=== PATIENT | female | born 1975 | race Caucasian/White ===

== ENCOUNTER 2018-08-15 15:02 | Emergency (ER) | payer SELFPAY ==
[2018-08-15 15:04] VITALS: BP 137/89; PULSE 86; RESP 18; TEMP 36.7; O2SAT 96; BMI 24.1
[2018-08-15 15:15] VITALS: TEMP 36.7
--- NOTE | 2018-08-15 15:16 | ED.VISSUMM ---
- ER Visit Summary Date of Service: 08/15/18 Chief Complaint: [Cough and fever] History of Present Illness: The patient is a 43 F [resents to the emergency department with multiple complaints that started 5 days ago. Patient states that she started with a cough and subjective fever. Patient complains of a mild sore throat from coughing. Patient complains of body aches. Patient had some posttussive emesis. Patient states her cough at times is productive with some green sputum. Patient is a smoker. Patient states that she has been around a young child that her daughter babysits who had upper respiratory infection recently. Patient denies any diarrhea.] Physical Examination: [HEENT-PERRLA, EOMI. Cranial nerves II through XII grossly intact. TMs clear. Mucous membranes moist. No adenopathy. Pharynx not erythematous. No anterior cervical lymphadenopathy noted. Cardiovascular-regular rate and rhythm without murmur or ectopy Lungs-good aeration bilaterally. Faint expiratory wheezes noted occasionally. No accessory muscle use or retractions. Abdomen-normoactive bowel sounds, soft, nontender, no rebound or rigidity, no peritoneal signs. Extremities-intact ?4, normal range of motion, normal pulses, atraumatic] Test Results: [Chest x-ray obtained showed a lingular infiltrate. Influenza screen was negative.] Emergency Department Course and Treatment: [Patient was started on Zithromax.] Treatment Plan: [Patient will be given an albuterol MDI as well as Tessalon Perles and a prescription for Zithromax. Patient will be referred to primary care physician bpm solution architect for no doc for follow-up within the next 5-7 days. Given patient's unremarkable vital signs I feel it is safe to treat her as an outpatient. Patient advised to return if increased difficulty breathing or condition should worsen anyway.] Disposition: Discharged home in stable condition [] Impression: [Pneumonia] This note was generated with [employer] dictation software. It may contain incorrect words, spelling, and punctuation that were not noted in review of the chart prior to signing ED Disposition - Plan for ED Patient: Chief Complaint: General Illness Referrals: Care Physician,No Primary [Primary Care Provider] -
--- NOTE | 2018-08-15 15:20 | RAD_ITS ---
STUDY: X-RAY CHEST REASON FOR EXAM: Female, 43 years old. Cough. Chest congestion and fever. TECHNIQUE: PA and lateral views of the chest. COMPARISON: None. FINDINGS: Focal lingular infiltrate. There is no demonstrated pleural abnormality. Normal size heart. Normal mediastinum and queta. Normal visualized pulmonary arteries. Normal visualized aortic arch and descending thoracic aorta. Normal visualized thoracic spine. Normal visualized ribs, clavicles, and shoulders. There is no demonstrated abnormality of the visualized soft tissue structures of the upper abdomen. RAD/Chest PA and Lateral IMPRESSION: Focal lingular infiltrate. Electronically Signed: Chet Rodriguez MD at 15:41 EST Tel [phone], Service support ,
--- NOTE | 2018-08-15 16:38 | ED.DEP ---
ED Disposition - Plan for ED Patient: Chief Complaint: General Illness Instructions: ED Pneumonia Adult Prescriptions: Azithromycin [Zithromax] 250 mg PO DAILY #4 tab Benzonatate [Tessalon Perle] 200 mg PO TID PRN PRN #20 cap PRN Reason: Cough Referrals: Care Physician,No Primary [Primary Care Provider] - Toño Ruiz MD [STAFF PHYSICIAN] - 5-7 Days
[2018-08-15] MEDS: Azithromycin 250 MG Tablet 500 MG PO (16:51)
== END 2018-08-15 16:55 | disposition home or self-care (01) ==
PROVIDERS: Emergency Provider Emergency Medicine
DX: J18.9 Pneumonia, unspecified organism (principal); F17.200 Nicotine dependence, unspecified, uncomplicated
CPT/HCPCS: 71046; 87804; 99283

== ENCOUNTER 2019-07-06 21:32 | Emergency (ER) | payer SELFPAY ==
[2019-07-06 21:32] VITALS: BP 158/98; PULSE 103; RESP 16; TEMP 36.6; O2SAT 98; BMI 26.2
[2019-07-06 22:04] VITALS: O2SAT 98
--- NOTE | 2019-07-06 23:01 | ED.VIS.GEN ---
History of Present Illness Chief Complaint: Cold Sx Informant: Patient Narrative: Presents with upper respiratory symptoms for the last 2 weeks. She is had a runny stuffy nose cough with occasional mucus sore throat and laryngitis. She is tried debk-jpr-uwoagil medications with minimal relief. She does smoke cigarettes. Wants to make sure she does not have pneumonia. No fevers or chills. Current severity is mild to moderate. Past Medical History - Allergies and Home Meds Allergies/Adverse Reactions: Allergies No Known Allergies Allergy (Verified 07/06/19 21:34) Primary Care Physician: Care Physician,No Primary [Primary Care Provider] - Prior records reviewed: Yes Past Medical History: None Surgical History: - - Reviewed Lives: With Family Smoking Status: Current every day smoker Alcohol: None Drugs: None Review of Systems General: Denies: Chills, Fever, Sweats Eyes: Denies: Visual changes - bilaterally, Diplopia ENT: Reports: Bilateral ear pain, Rhinorrhea, Sore throat Cardiovascular: Denies: Chest pain, Palpitations Respiratory: Reports: Cough. Denies: Dyspnea, Dyspnea on exertion Gastrointestinal: Denies: Abdominal pain, Nausea, Vomiting, Diarrhea, Melena, Hematochezia Genitourinary: Denies: Dysuria, Hematuria, Frequency Musculoskeletal: Denies: Back pain, Extremity Pain Skin: Denies: Rash, Wounds Neurological: Denies: Headache, Weakness, Numbness Physical Exam Vital Signs/Narrative: Vital Signs Temp Pulse Resp BP Pulse Ox 07/06/19 21:32 97.8 F 103 H 16 158/98 H 98 General: Well nourished, Well developed, No Acute Distress Head: Normocephalic, Atraumatic Eyes: Perrl, EOMI ENT: Moist mucous membranes, No rhinorrhea, TM's clear, Nasal congestion. Negative for: Dry mucous membranes, Sinus tenderness Neck: Supple, Nontender Cardiovascular: Regular rate, Regular rhythm, No murmurs Respiratory: No distress, CTA bilaterally, Chest nontender Abdomen: Soft, Nontender, Nondistended, Normal bowel sounds Back: Nontender, Normal Inspection Extremities: Nontender, No edema Skin: Normal color, No rash Neurological: Alert, Oriented x3, Cranial nerves II-XII grossly intact, Normal Strength, Normal Sensation Psychological: Normal affect, Normal Mood Diagnostic/Tx/Re-eval - Medical Decision Making Chest x-ray obtained is negative for acute process. At this time I feel the patient has an upper respiratory infection with laryngitis that is viral in nature and will have to run its course. ED Disposition - Plan for ED Patient: Disposition: Psychiatric Hospital or Unit Diagnosis: Upper respiratory infection Instructions: Adult Self-Care for Colds and Flu Referrals: Care Physician,No Primary [Primary Care Provider] -
--- NOTE | 2019-07-06 23:02 | RAD_ITS ---
HISTORY: Cough EXAMINATION/TECHNIQUE: XR Chest 2 Views: COMPARISON: 08/15/2018 FINDINGS: Normal heart size and normal lung volumes. No vascular congestion, pleural effusion, or acute pulmonary infiltration. No pneumothorax. The bony thorax appears intact. RAD/Chest PA and Lateral IMPRESSION: No acute cardiopulmonary disease. at 2338 Reported and signed by: Ambrosio Shaw MD Electronically Signed: Ambrosio Shaw, at 23:37 EST Tel , Service support ,
[2019-07-06 23:53] VITALS: BP 149/96; PULSE 91; RESP 20; O2SAT 96
== END 2019-07-06 23:54 | disposition home or self-care (01) ==
PROVIDERS: Emergency Provider Emergency Medicine
DX: J06.9 Acute upper respiratory infection, unspecified (principal); F17.210 Nicotine dependence, cigarettes, uncomplicated
CPT/HCPCS: 71046; 99282

== ENCOUNTER 2019-09-13 09:30 | Emergency (ER) | payer SELFPAY ==
[2019-09-13 09:31] VITALS: BP 157/111; PULSE 126; RESP 17; TEMP 36.8; O2SAT 98; BMI 26.2
--- NOTE | 2019-09-13 09:44 | ED.VIS.BACK ---
History of Present Illness Informant: Patient Onset: Days - 3 days Context: Sudden Onset Chronic pain exacerbated by: jumping up into a pickup truck Injury: Bending Timing: Continuous Quality: Sharp Location: Lumbar, Buttock, Right Leg Current Severity: Severe Maximum Severity: Severe Worsened by: improves with: Movement, Ambulation, Bending Relieved by: Nothing Associated Symptoms: Radiation to Right Leg Narrative: 44-year-old female with a history of sciatica presents to the emergency department with back pain. Back pain radiates down her right leg. It started 3 days ago when she states that she jumped up into her pickup truck. She did not fall or suffer trauma. She has a history of sciatic pain and this feels similar. She has been using topical Biofreeze and taking ibuprofen with only minimal relief. She has been urinating normally. She has not lost control of her bowel or bladder function. She has not had a fever. No abdominal pain vomiting or diarrhea. No dysuria, hematuria, urinary frequency or urgency. No weakness or paresthesias of the lower extremities. She is able to ambulate. Prior similar symptoms: Yes, With Prior Back Pain Recent Illness/Hospitalization: No <Niall Chery - Last Filed: 09/13/19 11:47> <Naman Marcelo - Last Filed: 09/13/19 11:53> Chief Complaint: Back Past Medical History Prior records reviewed: Yes Past Medical History: - - sciatica Surgical History: - - Lives: With Family Smoking Status: Current every day smoker <Niall Chery - Last Filed: 09/13/19 11:47> <Naman Marcelo - Last Filed: 09/13/19 11:53> - Allergies and Home Meds Allergies/Adverse Reactions: Allergies No Known Allergies Allergy (Verified 09/13/19 09:31) Primary Care Physician: Surya Estes DO [STAFF PHYSICIAN] - Care Physician,No Primary [Primary Care Provider] - Review of Systems All systems negative except as indicated General: Denies: Chills, Fever Eyes: Denies: Visual changes - bilaterally, Diplopia ENT: Denies: Rhinorrhea, Sore throat Cardiovascular: Denies: Chest pain, Palpitations Respiratory: Denies: Dyspnea, Cough, Sputum Gastrointestinal: Denies: Abdominal pain, Nausea, Vomiting, Diarrhea, Constipation, Melena, Hematochezia Genitourinary: Denies: Dysuria, Hematuria, Frequency Musculoskeletal: Reports: Back pain. Denies: Neck pain, Swelling, Extremity Pain Skin: Denies: Rash, Abscess, Abrasions, Wounds Neurological: Denies: Weakness, Parasthesia, Numbness Hematologic: Denies: Easy bruising, Easy bleeding <Niall Chery - Last Filed: 09/13/19 11:47> Physical Exam Vital Signs/Narrative: Vital Signs Temp Pulse Resp BP Pulse Ox 09/13/19 09:31 98.2 F 126 H 17 157/111 H 98 Inital Vital Signs reviewed: Yes General: Well nourished, Well developed Head: Normocephalic, Atraumatic Eyes: Perrl, EOMI ENT: Moist mucous membranes Neck: Supple, Nontender Cardiovascular: Regular rhythm, No murmurs, Tachycardia Respiratory: No distress, CTA bilaterally, Chest nontender Abdomen: Soft, Nontender, Nondistended, Normal bowel sounds, No masses Back: Normal Inspection, Paraspinal Tenderness, Positive SLR - Right, - - Patient has a topical tiger balm patch on her right lumbar paraspinal area which is where she has tenderness on palpation. There is no midline spinal tenderness. She has a positive straight leg raise on the right. It is negative on the left. Normal lower extremity strength testing and sensation bilaterally. Her gait is normal. Patellar and Achilles reflexes were normal bilaterally.. Negative for: Surgical Scar, Spinal tenderness, CVA tenderness, Negative SLR - Left Extremeties: Nontender, No edema Skin: Normal color, No rash, No Trauma Neuro: Alert, Oriented, Normal Strength, Normal Sensation, Normal DTR, Normal Gait Psychological: Normal affect <Niall Chery - Last Filed: 09/13/19 11:47> Vital Signs/Narrative: Vital Signs Temp Pulse Resp BP Pulse Ox 09/13/19 09:31 98.2 F 126 H 17 157/111 H 98 <Naman Marcelo - Last Filed: 09/13/19 11:53> Diagnostic/Tx/Re-eval - Medical Decision Making On exam the patient's symptoms and exam are consistent with a musculoskeletal strain. She was treated with intramuscular Toradol and Norflex. Repeat exam she feels improved. She is able to ambulate. She will be discharged home with prescriptions for both Naprosyn and Flexeril. She will be advised to rest and ice and she will be provided a primary care physician to follow-up with. Return precautions given. She was provided a note for work. She will be discharged <Niall Chery - Last Filed: 09/13/19 11:47> - Medical Decision Making Seen and evaluated independently and in conjunction with physician operating room assistant. Agree with notes above unless documented otherwise. Patient sounds like she has been having 3 days of sciatica down the right lower extremity. Straight leg raises are positive ipsilaterally only. No bowel or bladder dysfunction or signs or symptoms of cauda equina syndrome. She denies any recent injury so I do not think x-rays are indicated. She does not have insurance, so she will might have difficulty getting an outpatient MRI, we will have her follow-up she has no doctor so she is referred. We will try her on a course of prednisone as well which we discussed. She is not a diabetic. She feels better after treatment here and is given a prescription for Flexeril as well since she was having muscle spasms. <Naman Marcelo - Last Filed: 09/13/19 11:53> ED Disposition <Niall Chery - Last Filed: 09/13/19 11:47> <Naman Marcelo - Last Filed: 09/13/19 11:53> - Plan for ED Patient: Disposition: Home or Assisted Living Diagnosis: Acute lumbosacral myofascial strain Instructions: Back Sprain/Strain Prescriptions: cycloBENZAPRine HCl [Flexeril] 10 mg PO TID PRN #20 tab PRN Reason: Muscle Spasm Prescription Printed Naproxen [Naprosyn] 500 mg PO BID PRN #20 tab Prescription Printed Referrals: Care Physician,No Primary [Primary Care Provider] - Surya Estes DO [STAFF PHYSICIAN] -
[2019-09-13] MEDS: Ketorolac 30 MG/ML Syringe IM (09:51)
[2019-09-13] MEDS: Orphenadrine 60 MG/2 ML Ampul IM (09:51)
--- NOTE | 2019-09-13 12:01 | ED.RN ---
naproxen rx on the pts paperwork. per beth Marcelo doesnt want pt to take prednisone instead of naproxen
[2019-09-13 12:02] VITALS: BP 125/84; PULSE 88; RESP 16; O2SAT 97
== END 2019-09-13 12:03 | disposition home or self-care (01) ==
PROVIDERS: Emergency Provider Physician Assistant Medical
DX: S39.012A Strain of muscle, fascia and tendon of lower back, initial encounter (principal); X58.XXXA Exposure to other specified factors, initial encounter; Y93.89 Activity, other specified; F17.200 Nicotine dependence, unspecified, uncomplicated
CPT/HCPCS: 96372; 99282

== ENCOUNTER 2020-04-09 18:53 | Emergency (ER) | payer SELFPAY ==
[2020-04-09 18:55] VITALS: BP 153/98; PULSE 87; RESP 18; TEMP 36.3; O2SAT 100; BMI 25.8
--- NOTE | 2020-04-09 19:14 | CT_ITS ---
STUDY: CT PARANASAL SINUSES WITH CONTRAST REASON FOR EXAM: Female, 45 years old. PT STATED RT EYE SWELLING PROGRESSIVELY WORSENING, LOSS OF VISION, EYE VERY IRRITATED X 6 DAYS RADIATION DOSAGE (If Supplied By Facility): CTDIvol = ( 29.38 ) mGy, DLP = ( 466.65 ) mGycm TECHNIQUE: The patient was scanned in a multi-detector CT scanner. High resolution transaxial imaging was performed following the intravenous administration of 100ml isovue 300. Sagittal and coronal images were reconstructed. Individualized dose optimization techniques were used for this CT. COMPARISON: None. FINDINGS: FRONTAL SINUSES: Normal development and aeration of the bilateral frontal sinuses without mucosal inflammatory disease. ETHMOIDAL SINUSES: Normal development and aeration of the bilateral ethmoidal air cells without mucosal inflammatory disease. MAXILLARY SINUSES: Normal development and aeration of the bilateral maxillary antra without mucosal inflammatory disease. SPHENOIDAL SINUSES: Normal aeration of the bilateral sphenoid sinuses and there is no mucosal inflammatory disease. OMU: Normal aeration of the bilateral maxillary infundibulum. Normal uncinate process, ethmoid bulla, and hiatus semilunaris. MIDDLE TURBINATES: Normal bilateral middle turbinates without a moody bullosa or paradoxical curvature. INFERIOR TURBINATES: Normal bilateral inferior turbinates. NASAL SEPTUM: Left nasal septal deviation and spurring. Normal anterior cranial fossa, elie tim and cribriform plate. Normal bilateral orbital contents. Normal nasopharynx without adenoidal pad hypertrophy, or a posterior nasopharyngeal retention cyst. Presumed old nasal bone fracture. Nonspecific soft tissue swelling over the right eye without a focal fluid collection or abscess. Negative for foreign body. Normal appearance of the globe, extraocular muscles and retrobulbar fat. Normal appearance of the optic nerve. No acute intracranial findings included in the [id number]. CT/Sinus/Facial Bone WITH Contras IMPRESSION: Nonspecific soft tissue swelling over the right lobe without a focal fluid collection or abscess. Negative for foreign body. Normal underlying orbital soft tissues. Normal and clear paranasal sinuses. Left nasal septal deviation and spurring. Presumed old nasal bone fracture. Electronically Signed: Irena Hooper MD at 20:22 EDT , Service support ,
[2020-04-09] MEDS: Tetracaine 0.5% Ophthalmic Bottle OPHTHALMIC (19:19)
[2020-04-09] MEDS: Fluorescein 1 MG STRIP 1 STRIP OPHTHALMIC (19:20)
[2020-04-09] MEDS: Morphine 4 MG/ML Syringe IV (19:30)
[2020-04-09] MEDS: Ondansetron 4 MG/2 ML Vial IV (19:30)
[2020-04-09 19:37] LABS: Absolute Lymphocyte Count 1.14 X10^3/uL (0.83-4.51); Basophil# 0.03 X10^3/uL; Basophil% 0.8 % (0-1); Eosinophil# 0.05 X10^3/uL; Eosinophils% 1.4 % (0-5); Hematocrit 46.2 % (37-47); Hemoglobin 15.6 g/dL (12.0-15.0); Lymphocyte # 1.14 X10^3/ul (4.0); Lymphocyte % 31.5 % (19-41); Mean Corp Hgb Conc 33.8 g/dL (32-36); Mean Corpuscular Hgb 33.3 pg (27.0-32.0); Mean Corpuscular Volume 98.7 fL (81-99); Mean Platelet Vol. 9.4 fl (6.2-12.0); Monocyte# 0.39 X10^3/uL; Monocyte% 10.8 % (0-10); NRBC Flagged by Analyzer 0 % (0-5); Neutrophil % 55.2 % (47-70); Platelet Count 258 K/mm3 (150-450); RBC Distribution Width CV 13.3 % (11.6-14.6); RBC Distribution Width SD 48.4 fl (35.1-43.9); Red Blood Count 4.68 M/mm3 (4.2-5.4); White Blood Count 3.6 K/mm3 (4.4-11.0)
--- NOTE | 2020-04-09 19:44 | CT_ITS ---
STUDY: CT BRAIN WITHOUT CONTRAST REASON FOR EXAM: Female, 45 years old. PT STATED RT EYE SWELLING PROGRESSIVELY WORSENING, LOSS OF VISION, EYE VERY IRRITATED X 6 DAYS RADIATION DOSAGE (If Supplied By Facility): CTDIvol = ( 44.99 ) mGy, DLP = ( 762.36 ) mGycm TECHNIQUE: Transaxial CT imaging of the brain was performed without administration of intravenous contrast material. Individualized dose optimization techniques were used for this CT. COMPARISON: No relevant priors. FINDINGS: Normal soft tissue structures. Normal calvarium. Presumed, old nasal fracture deformity. Normal size ventricles and extra-axial spaces for the patient''s age. Normal white matter tracts of the cerebral hemispheres. Normal basal ganglia and thalami. Normal brainstem. Normal cerebellum. There is no intracranial hemorrhage. There are no findings of an acute ischemic infarction. Normal visualized paranasal sinuses. Superficial soft tissue swelling around the right by with an otherwise normal globe, extraocular muscles, optic nerve and retrobulbar are fatty tissues. Negative for abnormality of the bony orbit. CT/Brain/Head without Contrast IMPRESSION: Normal unenhanced CT scan of the brain. Normal paranasal sinuses. Superficial soft tissue swelling over the right eye without other abnormality of the globe or retrobulbar or soft tissues. Normal bony orbit. Old nasal bone fracture. Electronically Signed: Irena Hooper MD at 20:17 EDT , Service support ,
[2020-04-09 19:50] LABS: Anion Gap 5 (5-15); BUN 5 mg/dL (7-18); BUN/Creat Ratio 6.9 RATIO (10-20); Calcium,Total 8.3 mg/dL (8.5-10.1); Chloride 107 mmol/L (98-107); Creatinine, Serum 0.72 mg/dL (0.55-1.02); EST Glomerular Filtration Rate 93 mL/min (>60); Est Glom Filt Rate - Afr Amer 112 mL/min (>60); Estimated Creatinine Clearance 92.37 ml/min; Glucose 97 mg/dL (74-106); Potassium 3.4 mmol/L (3.5-5.1); Sodium Level 142 mmol/L (136-145)
[2020-04-09 19:55] LABS: Internal QC Validated? YES +Cl - CLEAR BKGD; Pregnancy, Serum, hCG Quali. NEGATIVE Negative
--- NOTE | 2020-04-09 21:01 | ED.VISSUMM ---
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 She reports she wears reading glasses. She does not wear contacts or other corrective lenses. She reports that 1 week ago she went to bed fine and woke up in the middle the night with a headache and her right upper eyelid was swollen. States that since that time she has had a throbbing headache that is 10 of 10 severity. She has a foreign body sensation in her eye that is 10 out of 10 at worst 9-10 currently. Is worsened by nothing including movement of her eye. She is a cold pack without relief. Patient reports that she is only been able to see light from her right eye for the past 6 days. She has never had anything like this before. She denies any injury to her eye. She denies any family history of glaucoma. She has no past medical problems. Patient went to the urgent care yesterday and was started on Bactrim and Keflex for concern of a preseptal cellulitis. On review of systems she complains of a subjective fever. She reports is been nausea and vomited multiple times. No blood in her emesis. She is had 2 episodes of diarrhea since starting the antibiotics yesterday. Physical Examination: Vitals: Stable. Afebrile. General: Well-nourished and well-developed. Head: Normocephalic atraumatic. Eyes: Moderate soft tissue swelling of her right upper eyelid. No erythema or warmth. This was everted for exam and there is no foreign body under this. However, there is significant inflammation. She has diffuse conjunctival injection. There is no fluorescein uptake. No foreign body. Extraocular motions are intact. Her pupil is fixed and midpoint. There is no consensual photophobia. Intraocular pressure is 30. Left eye: No conjunctival injection. No swelling of her eyelids. There is no foreign body or fluorescein dye uptake. Intraocular pressure is 25. Neck: Supple, no lymphadenopathy. No JVD. Nontender. Cardiovascular: Regular rate and rhythm. No murmurs. Respiratory: No respiratory distress. Clear to auscultation bilaterally. Abdominal: Soft, nontender, nondistended, normal bowel sounds. No guarding, rebound, or peritoneal signs. Back: Nontender. Extremities: Nontender, no edema. Skin: Normal color, no rash. Neurologic: Alert and oriented ?3. Cranial nerves II through XII are intact. Normal strength and sensation. Psych: Normal affect. Test Results: CBC shows a white count of 3.6 with a hemoglobin of 15.6 and 11 monocytes. Chem-7 shows a potassium of 3.4, BUN of 5, calcium 8.3. test is negative. Clinical Impression(s) from Imaging Studies Facial/Sinus 04/09/20 19:14 IMPRESSION: Nonspecific soft tissue swelling over the right lobe without a focal fluid collection or abscess. Negative for foreign body. Normal underlying orbital soft tissues. Normal and clear paranasal sinuses. Left nasal septal deviation and spurring. Presumed old nasal bone fracture. Electronically Signed: Irena Hooper MD at 20:22 EDT , Service support , Brain CT 04/09/20 19:44 IMPRESSION: Normal unenhanced CT scan of the brain. Normal paranasal sinuses. Superficial soft tissue swelling over the right eye without other abnormality of the globe or retrobulbar or soft tissues. Normal bony orbit. Old nasal bone fracture. Electronically Signed: Irena Hooper MD at 20:17 EDT , Service support , Emergency Department Course and Treatment: Patient had an IV placed. She is given morphine and Zofran IV. She is resting more comfortably. Treatment Plan: The patient was discussed with Dr. Finch. He feels that this sounds inflammatory in nature. He has a the patient be given a dose of prednisone tonight. He will see her in the office tomorrow at 8 AM. She will be discharged with Zofran and [place]. Return to the emergency department for any worsening symptoms. Disposition: To home in improved and stable condition. Impression: 1. Right eye pain, uncertain cause. This note was generated with [employer] software. It may contain incorrect words, spelling, and punctuation that were not noted in review of the chart prior to signing ED Disposition - Plan for ED Patient: Instructions: Understanding Red Eye: Causes Prescriptions: Hydrocodone Bitart/Apap 5-325 [[place] 5MG-325MG] 1 tablet PO Q4H PRN PRN 2 Days #10 tablet PRN Reason: Pain Ondansetron [Zofran Odt] 4 mg PO Q8H PRN PRN #10 tablet PRN Reason: Nausea Referrals: Armani Finch MD [STAFF PHYSICIAN] - 04/10/20 8:00 am
[2020-04-09] MEDS: predniSONE 20 MG Tablet 60 MG PO (21:21)
[2020-04-09 21:22] VITALS: RESP 18
== END 2020-04-09 21:24 | disposition home or self-care (01) ==
LOC: ED 19:41
PROVIDERS: Emergency Provider Emergency Medicine
DX: H57.11 Ocular pain, right eye (principal); F17.200 Nicotine dependence, unspecified, uncomplicated
CPT/HCPCS: 70450; 70487; 80048; 84703; 85025; 96361; 96374; 96375; 99283; J7040; Q9967; A4216; J2405

== ENCOUNTER 2020-06-25 03:37 | Emergency (ER) | payer SELFPAY ==
[2020-06-25 03:39] VITALS: BP 126/106; PULSE 106; RESP 16; TEMP 36.6; O2SAT 98; BMI 26.2
[2020-06-25 04:12] LABS: Absolute Lymphocyte Count 2.17 X10^3/uL (0.83-4.51); Absolute Neutrophil Count 2.7 X10^3/uL (2.0-7.7); Basophil# 0.04 X10^3/uL; Basophil% 0.7 % (0-1); Eosinophil# 0.14 X10^3/uL; Eosinophils% 2.6 % (0-5); Hematocrit 42.6 % (37-47); Lymphocyte # 2.17 X10^3/ul (4.0); Lymphocyte % 40.6 % (19-41); Mean Corp Hgb Conc 35.2 g/dL (32-36); Mean Corpuscular Hgb 33.4 pg (27.0-32.0); Mean Corpuscular Volume 94.9 fL (81-99); Mean Platelet Vol. 9.2 fl (6.2-12.0); Monocyte# 0.29 X10^3/uL; Monocyte% 5.4 % (0-10); NRBC Flagged by Analyzer 0 % (0-5); Neutrophil # 2.69 X10^3/uL (2.7-7.7); Neutrophil % 50.5 % (47-70); Platelet Count 239 K/mm3 (150-450); RBC Distribution Width CV 11.9 % (11.6-14.6); RBC Distribution Width SD 42.2 fl (35.1-43.9); Red Blood Count 4.49 M/mm3 (4.2-5.4); White Blood Count 5.3 K/mm3 (4.4-11.0)
--- NOTE | 2020-06-25 04:16 | ED.VIS.FEGU ---
History of Present Illness Chief Complaint: Vag Bleeding Informant: Patient Pain: Pelvic Pain Onset: Yesterday Context: Gradual Onset Timing: Continuous Quality: Cramping Location: - - throughout pelvis; nonlateralizing Current Severity: Severe Maximum Severity: Severe Worsened by: - - nothing Relieved by: - - nothing Issue: Vaginal bleeding, Passing clots Onset: Yesterday - around 18-20 hrs Context: Gradual Onset Current Severity: Heavy Maximum Severity: Heavy - gone through about 15 pads since onset - Vaginal Discharge Onset: - - no other discharge other than blood/clots Associated Symptoms: Negative for: Dysuria, Frequency, Urgency, Hematuria Last known menstrual period: every 2 weeks since last month, started yesterday with this Sexually: Active Narrative: Very anxious patient presenting with symptoms of a miscarriage, but I am not ... I am with severe pelvic pain and vaginal bleeding. She states she came in because there is blood on my rug at home. She denies any lightheadedness or near syncope, chest discomfort, shortness of breath, upper abdominal pain, she has had some nausea but no vomiting. No urinary symptoms. No other vaginal discharge recently or other vaginal symptoms. She did not have pain before the bleeding started, it began gradually and became worse later in the day. Past Medical History - Allergies and Home Meds Allergies/Adverse Reactions: Allergies No Known Allergies Allergy (Verified 06/25/20 03:38) Primary Care Physician: Care Physician,No Primary [Primary Care Provider] - Past Medical History: None Surgical History: - - Smoking Status: Current every day smoker Review of Systems General: Denies: Chills, Fever, Sweats Eyes: Denies: Visual changes - bilaterally, Diplopia ENT: Denies: Rhinorrhea, Sore throat Cardiovascular: Denies: Chest pain, Palpitations Respiratory: Denies: Dyspnea, Cough, Dyspnea on exertion Gastrointestinal: Reports: Abdominal pain, Nausea. Denies: Vomiting, Diarrhea, Melena, Hematochezia Genitourinary: Reports: - - Vaginal bleeding. See HPI.. Denies: Dysuria, Hematuria, Frequency Musculoskeletal: Denies: Myalgias, Back pain, Extremity Pain Skin: Denies: Rash, Wounds Neurological: Denies: Headache, Weakness, Numbness Physical Exam Vital Signs/Narrative: Vital Signs Temp Pulse Resp BP Pulse Ox 06/25/20 03:39 97.9 F 106 H 16 126/106 H 98 Inital Vital Signs reviewed: Yes General: Well nourished, Well developed, - - NAD Head: Normocephalic, Atraumatic Eyes: Perrl, EOMI ENT: Moist mucous membranes, No rhinorrhea Neck: Supple, Nontender Cardiovascular: Regular rate, Regular rhythm, No murmurs Respiratory: No distress, CTA bilaterally, Chest nontender Abdomen: Soft, Nondistended, Normal bowel sounds, No masses, Tender - Mild suprapubic only. Negative for: Guarding, Rebound tenderness : Speculum exam: Normal external genitalia, No vaginal lesions, No vaginal discharge, No active bleeding, Normal cervix, Old blood - small amount in vault post fornix; no clots Bimanual exam: No cervical motion tenderness, Os closed, Nontender adnexa, bilat, Tender Uterus Back: Nontender, Normal Inspection. Negative for: CVA tenderness Extremities: Nontender, No edema Skin: Normal color, No rash Neurological: Alert, Oriented x3, Cranial nerves II-XII grossly intact, Normal Strength, Normal Sensation, Normal Gait Psychological: - - Very anxious Diagnostic/Tx/Re-eval Laboratory Results 06/25/20 06/25/20 06/25/20 04:03 04:03 04:15 WBC 5.3 RBC 4.49 Hgb 15.0 Hct 42.6 MCV 94.9 MCH 33.4 H MCHC 35.2 RDW Std Deviation 42.2 RDW Coeff of Lilliana 11.9 Plt Count 239 MPV 9.2 Immature Gran % (Auto) 0.200 Neut % (Auto) 50.5 Lymph % (Auto) 40.6 [place] % (Auto) 5.4 Eos % (Auto) 2.6 Baso % (Auto) 0.7 Absolute Neuts (auto) 2.7 Absolute Lymphs (auto) 2.17 Nucleated RBC % 0 Serum , Qual NEGATIVE Urine Color Yellow Urine Clarity Clear Urine pH 7.0 Ur Specific [place] 1.005 Urine Protein Negative Urine Glucose (UA) Normal Urine Ketones Negative Urine Occult Blood 250 H Urine Nitrite Negative Urine Bilirubin Negative Urine Urobilinogen Normal Ur Leukocyte Esterase Negative Urine RBC 0 SEEN Urine WBC 0 SEEN Ur Squamous Epith Cells 5-10 SEEN Urine Bacteria 0 SEEN Urine Mucus 0 SEEN - Medical Decision/Diagnostic Studies Patient's vital signs are normal with the exception of mild tachycardia which is more likely because she is anxious given her blood counts and lack of active bleeding on exam. Her is negative, she is reassured. She was given IV Toradol for her pain, and I feel she can safely be discharged home to follow-up with [facility]. ED Disposition - Plan for ED Patient: Disposition: Home or Assisted Living Diagnosis: Dysfunctional uterine bleeding, Dysmenorrhea Instructions: ED Bleed Irregular Vaginal Referrals: Jonathon Camacho MD [STAFF PHYSICIAN] - 1-2 Days if not improving
[2020-06-25] MEDS: Ketorolac 30 MG/ML Syringe IV (04:17)
[2020-06-25 04:18] LABS: Bacteria 0 SEEN /hpf (None Seen); Mucous, Urine 0 SEEN /hpf (<or=2+); Red Blood Cells-Urine 0 SEEN /hpf (0-5); White Blood Cells 0 SEEN /hpf (0-5)
[2020-06-25 04:19] LABS: Color, Urine Yellow (Yellow); Glucose, Dipstick Normal (Normal); Ketone-Dipstick Negative (Negative); Leukocyte Esterase-Dipstick Negative /ul (Negative); Nitrite-Dipstick Negative (Negative); Occult Blood-Urine 250 /ul (Negative); Protein-Dipstick Negative (Negative); Specific Gravity, Urine 1.005 (1.002-1.030); Urine Bilirubin Dipstick Negative (Negative); Urine Clarity Clear (Clear); Urine Urobilinogen Normal (Normal)
[2020-06-25 04:23] LABS: Internal QC Validated? YES +Cl - CLEAR BKGD; Pregnancy, Serum, hCG Quali. NEGATIVE Negative
[2020-06-25 04:25] LABS: Squamous Epithelial Cells - UA 5-10 SEEN /hpf (5-10)
[2020-06-25 04:45] VITALS: BP 118/60; PULSE 90; RESP 18; O2SAT 97
== END 2020-06-25 04:47 | disposition home or self-care (01) ==
LOC: ED 04:40
PROVIDERS: Emergency Provider Emergency Medicine
DX: N93.8 Other specified abnormal uterine and vaginal bleeding (principal); N94.6 Dysmenorrhea, unspecified; F17.200 Nicotine dependence, unspecified, uncomplicated
CPT/HCPCS: 81001; 84703; 85025; 96374; 99283; A4216